=== PATIENT | female | born 1970 | race Two or more races ===

== ENCOUNTER 2018-07-24 14:41 | Emergency (ER) | payer BC ==
[2018-07-24] MEDS ORDERED: HYDRALAZINE HCL 20 MG/ML VIAL IV STA (14:52)
[2018-07-24] MEDS ORDERED: ASPIRIN 81 MG CHEW TAB PO ONE (15:00)
[2018-07-24 15:05] LABS: BASOPHILS % 0.2 % (0.0-1.0); EOSINOPHILS % 0.7 % (0.0-6.0); HEMATOCRIT 46.5 % (34.2-44.1); LYMPHOCYTES # (AUTO) 2.3 (1.0-3.2); LYMPHOCYTES % 39.1 % (18.0-39.1); MEAN CORPUSCULAR HEMOGLOBIN 28.2 pg (28-32); MEAN CORPUSCULAR HGB CONC 34.4 g/dL (31-35); MONOCYTES # (AUTO) 0.4 (0.2-0.8); MONOCYTES % 6.1 % (4.4-11.3); NEUTROPHILS # (AUTO) 3.2 (2.1-6.9); NEUTROPHILS % 53.7 % (38.7-80.0); PLATELET COUNT 250 x10e3/uL (140-360); RED BLOOD COUNT 5.67 x10e6/uL (3.6-5.1); RED CELL DISTRIBUTION WIDTH 12.2 % (11.7-14.4)
[2018-07-24] MEDS: SODIUM CHLORIDE 0.9% 1000ML 1,000 ML IV STA ×2 (15:05→16:03)
[2018-07-24 15:13] LABS: INR 0.83; PROTHROMBIN TIME 12.2 seconds (11.9-14.5)
[2018-07-24 15:14] LABS: PARTIAL THROMBOPLASTIN TIME 25.4 seconds (23.8-35.5)
[2018-07-24 15:21] LABS: ALANINE AMINOTRANSFERASE 33 IU/L (0-55); ALBUMIN 4.3 g/dL (3.5-5.0); ALBUMIN/GLOBULIN RATIO 1.3 (0.8-2.0); ALKALINE PHOSPHATASE 78 IU/L (40-150); ANION GAP 13.6 mmol/L (8-16); BLOOD UREA NITROGEN 12 mg/dL (7-26); BUN/CREATININE RATIO 14 (6-25); CALCIUM 9.9 mg/dL (8.4-10.2); CARBON DIOXIDE 26 mmol/L (22-29); CHLORIDE 103 mmol/L (98-107); CREATINE KINASE 139 IU/L (29-168); CREATININE, SERUM 0.87 mg/dL (0.57-1.11); EST GLOMERULAR FILTRATION RATE > 60 ML/MIN (60-); GLUCOSE 91 mg/dL (74-118); POTASSIUM 3.6 mmol/L (3.5-5.1); SODIUM 139 mmol/L (136-145)
[2018-07-24] MEDS ORDERED: LORAZEPAM INJ 2 MG/ML VIAL ONE (15:51)
[2018-07-24] MEDS ORDERED: DIPHENHYDRAMINE HCL INJ 50 MG/ML VIAL ONE (15:51)
[2018-07-24] MEDS ORDERED: METOCLOPRAMIDE HCL 10 MG/2ML VIAL ONE (15:51)
[2018-07-24] MEDS ORDERED: DIPHENHYDRAMINE HCL INJ 50 MG/ML VIAL IV ONE (16:00)
[2018-07-24] MEDS ORDERED: METOCLOPRAMIDE HCL 10 MG/2ML VIAL IV ONE (16:00)
--- NOTE | 2018-07-24 16:33 | Diagnostic Imaging Report ---
Exam: Head CT without contrast History:Hypertension Comparison studies: None Technique: Axial images were obtained from the skull base to the vertex. Coronal and sagittal images reconstructed from the axial data. Dose modulation, iterative reconstruction, and/or weight based adjustment of the mA/kV was utilized to reduce the radiation dose to as low as reasonably achievable. Intravenous contrast: None Findings: Scalp/skull: No abnormalities. Extra-axial spaces: No masses. No fluid collections. Brain sulci: Normal. Ventricles: Normal size and configuration. No hydrocephalus. Parenchyma: No masses, hemorrhage, acute or chronic cortical vascular insults. Sellar/suprasellar region: No abnormalities. Craniocervical junction: Patent foramen magnum. No Chiari one malformation. Incidental findings: Atherosclerotic calcifications in the carotid siphons . Impression: Normal head CT without contrast. A preliminary report was provided by Dr. Long on 07/24/2018 4:31 PM I have reviewed the images and agree with the findings in the preliminary report. Signed by: Dr. Emeli Suggs M.D. on 07/24/2018 8:18 PM
[2018-07-24 16:47] LABS: BILIRUBIN,URINE NEGATIVE (NEGATIVE); CLARITY,URINE CLEAR (CLEAR); COLOR,URINE YELLOW (YELLOW); KETONES,URINE NEGATIVE (NEGATIVE); LEUKOCYTE ESTERASE ,URINE NEGATIVE (NEGATIVE); NITRITE,URINE NEGATIVE (NEGATIVE); PROTEIN,URINE DIPSTICK NEGATIVE (NEGATIVE); URINE UROBILINOGEN 0.2 mg/dL (0.2 - 1)
[2018-07-24 17:15] LABS: BACTERIA,URINE RARE /HPF; EPITHELIAL CELLS,URINE RARE /LPF; RBC,URINE 0-5 /HPF (0-5); WBC,URINE (MAN) 0-5 /HPF (0-5)
[2018-07-24 17:53] VITALS: BP 134/104
== END 2018-07-24 17:54 | disposition home or self-care (01) ==
LOC: ER 14:41
DX: R51 Headache (principal); I10 Essential (primary) hypertension
CPT/HCPCS: 36415; 70450; 80053; 81001; 82550; 82553; 84484; 85025; 85610; 85730; 87086; 93005; 99284; J0360; J1200; J2765; J7030; J2060